=== PATIENT | female | born 2000 | race Caucasian/White ===

== ENCOUNTER 2024-11-15 08:29 | Outpatient (CLI) | payer OTHER, SELFPAY ==
--- OUTSIDE RECORDS SUMMARY | 2024-11-16 08:32 | XMS_ITS | Encounter Summary ---
Author Organization [place] [address] Care Team Providers Care Web Content Executive Name Role Phone Unavailable Primary Care Provider Unavailabl e Reason for Visit * Reason Comments Medication Refill Encounter Details Date Type Department Care Team (Late st Contact Info) Description 10/16/2024 Refill [facility] NPTT [address] [place] [phone] Rachel Richardson, [address] [place] [address] [place] [address] Medication Refill Social History Tobacco Use Types Packs/Day Years Used Date Smoking Tobacco: Never Smokeless Tobacco: Never Alcohol Use Standard Drinks/Week Comments Yes 0 (1 standard drink = 0.6 oz pur e alcohol) AUDIT-C Answer Date Recorded Frequency of Alcohol Consumption Never 11/28/2018 Average Number of Drinks Not on file 019 Frequency of Binge Drinking Not on file 11/19 PHQ-2 Answer Date Recorded PHQ-2 Score 0 11/28/2018 Sexually Active Control Partners Comments Never Comments No Sex and Gender Information Value Date Recorded Sex Assigned at Not on file Legal Sex Female 7:13 PM EDT Gender Identity Not on file Sexual Orientation Not on file documented as of this encounter Ordered Prescriptions Prescription Sig Dispense Quantity Refills Last Filled Start Date End Date VIENVA 0.1-20 mg-mcg Oral TabletIndications:Co unseling for control, oral contraceptives TAKE 1 TABLET BY MOUTH EVERY DAY 84 Tablet 10/16/2024 documented in this encounter Miscellaneous Notes * Telephone Encounter - Ailyn Galeas MA - 10/16/2024 7:33 AM EDT Must make an appt documented in this encounter Plan of Treatment Not on file documented as of this encounter Visit Diagnoses Diagnosis Counseling for control, oral contraceptives General counseling for prescription of oral contraceptives documented in this encounter Discontinued Medications Medication Sig Discontinue Reason Start Date End Da te levonorgestrel-ethinyl estradiol (AVIANE;ALESSE;LESSINA) 0.1-20 mg-mcg Oral TabletIndications:Counseli ng for control, oral contraceptives Take 1 Tablet by mouth daily for 90 days. 10/09/2023 10/16/2024 documented as of this encounter
--- OUTSIDE RECORDS SUMMARY | 2024-11-16 08:32 | XMS_ITS | Clinical Summary ---
Author Organization [facility] Address [address] [place] [address] Phone Care Team Providers Care Aviation Technical Systems Specialist Name Role Phone Unavailable Primary Care Provider Unavailabl e Allergies No known active allergies Medications VIENVA 0.1-20 mg-mcg Oral TabletIndications:C ounseling for control, oral contraceptives TAKE 1 TABLET BY MOUTH EVERY DAY 84 Tablet 5 Active Active Problems No known active problems Encounters Date Type Department Care Team Description 10/16/2024 Refill [facility] NPTT [address] [place] [phone] Rachel Richardson DO Medication Refill from Last 3 Months Immunizations Immunization Administration Dates Next Due DTaP, Unspecified Formulation 04/28/2003, 003,2002 Hep B/HiB 04/28/2003 HiB (PRP-OMP) 2002 IPV 03/25/2003,2002 LAST MANUFACTURED 2011-Pneum ococcal Conjugate 7 Valent 04/28/2003,2002,2002 MMR 03/25/2003 Varicella 03/25/2003 Family History Medical History Relation Name Comments Breast Cancer Neg Hx Colon Cancer Neg Hx Ovarian Cancer Neg Hx Social History Tobacco Use Types Packs/Day Years Used Date Smoking Tobacco: Never Smokeless Tobacco: Never Tobacco Cessation:Counseling Given: Not Answered Alcohol Use Standard Drinks/Week Comments Yes 0 [...] on file Sexual Orientation Not on file Obstetrics History Para Term AB IAB SAB Ectopic Multiple Livin g Live Births 0 0 0 0 0 0 0 0 0 0 0 Last Filed Vital Signs Vital Sign Reading Time Taken Comments Blood Pressure 122/62 10/09/2023 10:02 AM EDT Pulse 105 08/04/2023 4:10 PM EDT Temperature 36.7 C (98.1 F) 08/04/2023 4:10 PM EDT Respiratory Rate 18 08/04/2023 4:10 PM EDT Oxygen Saturation 100% 08/04/2023 4:10 PM EDT Inhaled Oxygen Concentration - - Weight 55.3 kg (122 lb) 10/09/2023 10:02 AM EDT Height 170.2 cm (5' 7 ) 08/04/2023 4:10 PM EDT Body Mass Index 19.11 08/04/2023 4:10 PM EDT Plan of Treatment Health Maintenance Due Date Last Done Comments Hepatitis B Vaccine (2 of 3 - 3-dose series) 05/26/2003 04/28/2003 Annual Wellness Exam 2005 HPV (1 - 3-dose series) 2017 Meningococcal B Vaccine (1 o f 2 - Standard) 2018 DTaP/TDaP/Td (4 - Tdap) 2021 04/28/20 03, 2002, 2002 COVID-19 Vaccine ( - 2023-2 5 season) 2024 Influenza Vaccine (Season Ended) 2025 Cervical Cancer Screening 10/08/2026 Pap Smear 10/08/2026 10/09/2023 Pneumococcal Vaccine 0-49 Aged Out 2002, 2002, 2002 No longer eligible based on patient's age to complete this topic Procedures Procedure Name Priority Date/Time Associated Diagnosis Comments [employer] TECHNICIAN CYTOLOGY REQUEST (PAP ONLY) Routine 10/09/2023 10:31 AM EDT Well woman exam with routine gynecological exam from Last 3 Months or Most Recently Relevant to Health Maintenance Results * [employer] TECHNICIAN CYTOLOGY REQUEST (PAP ONLY) (10/09/2023 10:31 AM EDT) CASE REPORT Gynecologic Cytology Report Case: [id number] Authorizing Provider: Rachel Richardson DO Collected: 10/09/2023 1031 Ordering Location: [facility] NPTFTT Received: 10/09/2023 1031 First Screen: [facility] Sh[facility] CT Specimen: LIQUID-BASED PAP - CERVICAL/ENDOCERV ICAL, Cervix, Endocervical 10/11/2023 4:03 PM EDT [facility] PAP FINAL DIAGNOSIS Negative for intraepithelial lesion or malignancy 10/11/2023 4:03 PM EDT [facility] at 1603 EDT MICROSCOPIC DESCRIPTION Microscopic examination is performed and the findings corroborate the diagnosis. 10/11/2023 4:03 PM EDT [facility] PAP SMEAR ADEQUACY Satisfactory for evaluation 10/11/2023 4:03 PM EDT [facility] ENDOCERVICAL T-ZONE Transformation zone absent. 10/11/2023 4:03 PM EDT [facility] EMBEDDED IMAGES 4:03 PM EDT [facility] PAP DISCLAIMER The Pap Smear is a screening test that aids in the detection of cervical cancer and cancer precursors. Both false positive and false negative results can occur. The test should be used at regular intervals, and positive results should be confirmed before definitive therapy. Processed using the ThinPrep [employer] Automated cytology screening device ([email or web address]). 10/11/2023 4:03 PM EDT [facility] Thin Prep ENDOCERVICAL STRUCTURE / Unknown 10/09/2023 10:31 AM EDT 10/09/2023 10:31 AM EDT us Rachel Richardson DO CYTOLOGY ORDERABLES Fin al Result [facility] [address] [id number] from Last 3 Months or Most Recently Relevant to Health Maintenance Insurance [employer]
== END 2024-11-15 23:59 | disposition home or self-care (01) ==
LOC: LAB 11-16 08:34
PROVIDERS: PCP Nurse Practitioner Family; Visit Provider Nurse Practitioner Family
DX: R30.0 Dysuria (principal)
CPT/HCPCS: 87086; 87088; 87186